=== PATIENT | male | born 1955 | race Caucasian/White ===

== ENCOUNTER 2019-05-10 14:32 | Inpatient (IN) | payer MEDICARE, MEDICAID ==
[2019-05-10] MEDS ORDERED: Ondansetron 4 MG Tab.DIS PO PRN (15:50)
[2019-05-10] MEDS ORDERED: Lactulose Soln 10 GM/15 ML 15 ML UD Cup PO PRN (16:01)
--- NOTE | 2019-05-10 16:16 | PCM.HP.2 ---
H&P History of Present Illness - General Date of Service: 05/10/19 Admit Problem/Dx: Admission Diagnosis/Problem Admission Diagnosis/Problem Rehabilitation therapy Source of Information: Patient, Old Records, Provider History Limitations: Reports: No Limitations - History of Present Illness Initial Comments - Free Text/Narative: Transfer from [facility] for strengthening, he was admitted on 05/05 after being found on the floor by his son with coffee ground emesis. He had acute blood loss anemia and had PEA cardiac arrest, had return of spontaneous circulation and was weaned off the ventilator and moved to medical floor. He received 2 units PRBCs on Admission to ICU and treated for Aspiration pneumonia with ceftriaxone and metronidazole. His hemoglobin has been stable and was 8.5 and today 9.1. His potassium has been replaced and was 2.8 this morning. He received 40 mEq at time of discharge from [place] prior to arrival. He has 3 mores doses of Cefuroxime and 8 doses of Metronidazole left. He had EGD when in ICU and they found a large gastritis, likely cause of bleeding. History of alcohol abuse but no DTs while in [place] and has been pleasant cooperative. No hallucinations or tremors. He is on Lactulose bid titrating to have 2-3 bowel movements/day to keep his ammonia levels down. He has a productive cough, denies any rib pain, chest or abdominal pain. No diarrhea. He has some skin tears on his upper arms that were dressed prior to arrival. - Related Data Home Medications: Home Meds Cefuroxime Axetil [Ceftin] 500 mg PO BID 05/10/19 [History] Cyanocobalamin (Vitamin B-12) [Vitamin B-12] 250 mcg PO DAILY 05/10/19 [History] Folic Acid 1 mg PO DAILY 05/10/19 [History] Lactulose 15 ml PO BID PRN 05/10/19 [History] Omeprazole 20 mg PO BIDAC 05/10/19 [History] Potassium Chloride 40 meq PO BID 05/10/19 [History] Thiamine HCl 100 mg PO DAILY 05/10/19 [History] metroNIDAZOLE [Flagyl] 500 mg PO TID 05/10/19 [History] Past Medical History Cardiovascular History: Reports: Prior Cardiac Arrest Other Respiratory History: aspiration pneumonia Gastrointestinal History: Reports: Gastritis, GI Bleed Psychiatric History: Denies: Hallucinations Other Psychiatric History: Alcoholism Social & Family History - Tobacco Use Smoking Status *Q: Current Every Day Smoker Tobacco Use Within Last Twelve Months: Cigarettes Years of Tobacco use: 50 Packs/Tins Daily: 0.5 - Alcohol Use Alcohol Use History: Yes Alcohol Use Frequency: Daily (375 ml of vodka/day) H&P Review of Systems - Review of Systems: Review Of Systems: See Below General: Reports: No Symptoms Pulmonary: Reports: Shortness of Breath, Cough, Sputum Cardiovascular: Reports: No Symptoms Gastrointestinal: Reports: No Symptoms Genitourinary: Reports: No Symptoms Skin: Reports: Other (skin tears on bilateral upper arms) Psychiatric: Denies: Hallucinations (Auditory), Hallucinations (Visual) Neurological: Denies: Tremors Hematologic/Lymphatic: Reports: Anemia Exam - Exam Exam: See Below - Exam General: Alert, Oriented, Cooperative HEENT: Conjunctiva Clear, Hearing Intact, Mucosa Moist & [place] Neck: Supple, Trachea Midline Lungs: Normal Respiratory Effort, Decreased Breath Sounds, Rales, Wheezing Cardiovascular: Regular Rate, Regular Rhythm GI/Abdominal Exam: Normal Bowel Sounds, Soft, Non-Tender, No Distention Extremities: No Pedal Edema *Q Meaningful Use (ADM) - VTE *Q VTE Anticoagulation Contraindications: Medical/Procedure Contrai - Problem List (1) Aspiration pneumonia SNOMED Code(s): 933877062 ICD Code: J69.0 - PNEUMONITIS DUE TO INHALATION OF FOOD AND VOMIT Status: Acute Current Visit: Yes (2) Anemia due to acute blood loss SNOMED Code(s): 570604021 ICD Code: D62 - ACUTE POSTHEMORRHAGIC ANEMIA Status: Acute Current Visit : Yes (3) Hypokalemia SNOMED Code(s): 66306482 ICD Code: E87.6 - HYPOKALEMIA Status: Acute Current Visit: Yes (4) Gastritis determined by endoscopy SNOMED Code(s): 1458834, 854298522 ICD Code: K29.70 - GASTRITIS, UNSPECIFIED, WITHOUT BLEEDING Status: Acute Current Visit: Yes (5) Alcoholism /alcohol abuse SNOMED Code(s): 4855303 ICD Code: F10.20 - ALCOHOL DEPENDENCE, UNCOMPLICATED Status: Acute Current Visit: Yes (6) History of cardiac arrest SNOMED Code(s): 344720378 ICD Code: Z86.74 - PERSONAL HISTORY OF SUDDEN CARDIAC ARREST Status: Acute Current Visit: Yes (7) Hepatic encephalopathy SNOMED Code(s): 78209391 ICD Code: K72.90 - HEPATIC FAILURE, UNSPECIFIED WITHOUT COMA Status: Acute Current Visit: Yes Problem List Initiated/Reviewed/Updated: Yes Orders Last 24hrs: Active Orders 24 hr Category Date Time Status Patient Status [ADT] Routine ADT 05/10/19 15:42 Ordered Height and Weight [RC] WEEKLY Care 05/10/19 15:42 Ordered Oxygen Therapy [RC] PRN Care 05/10/19 15:42 Ordered Up With Assistance [RC] QID Care 05/10/19 15:50 Ordered VTE/DVT Education [RC] Per Unit Routine Care 05/10/19 15:42 Ordered Vital Signs [RC] PER UNIT ROUTINE Care 05/10/19 15:42 Ordered Consult to Case Management/Vascular Ultrasound Technician [CONS] Cons 05/10/19 15:50 Ordered Routine OT Evaluation and Treatment [CONS] Routine Cons 05/13/19 07:00 Ordered PT Evaluation and Treatment [CONS] Routine Cons 05/13/19 07:00 Ordered Regular Diet [DIET] Diet 05/10/19 Dinner Ordered BASIC METABOLIC PANEL,BMP [CHEM] Routine Lab 05/11/19 06:00 Ordered CBC WITH AUTO DIFF [HEME] Routine Lab 05/11/19 06:00 Ordered Cefuroxime Axetil [Ceftin] Med 05/10/19 21:00 Ordered 500 mg PO BID Cyanocobalamin (Vitamin B-12) [Vitamin B-12] Med 05/11/19 09:00 Ordered 250 mcg PO DAILY Folic Acid Med 05/11/19 09:00 Ordered 1 mg PO DAILY Lactulose [Chronulac] Med 05/10/19 16:01 Ordered 10 gm PO BID PRN Ondansetron [Zofran ODT] Med 05/10/19 15:50 Ordered 4 mg PO Q6H PRN Potassium Chloride [Klor-Con 10] Med 05/11/19 09:00 Ordered 40 meq PO BID Thiamine [Vitamin B-1] Med 05/11/19 09:00 Ordered 100 mg PO DAILY metroNIDAZOLE [Flagyl] Med 05/10/19 21:00 Ordered 500 mg PO TID Anticoagulation Contraindications VTE [AST] Per Unit Oth 05/10/19 15:50 Ordered Routine Antiembolic Hose [OM.PC] Per Unit Routine Oth 05/10/19 15:55 Ordered Resuscitation Status Routine Resus Stat 05/10/19 15:42 Ordered Medication Orders Folic Acid (Folic Acid) 1 mg PO DAILY [facility] Lactulose (Chronulac) 10 gm PO BID PRN PRN Reason: Constipation Metronidazole (Flagyl) 500 mg PO TID [facility] Non-Formulary Medication (Cefuroxime Axetil [Ceftin]) 500 mg PO BID [facility] Non-Formulary Medication (Cyanocobalamin (Vitamin B-12) [Vitamin B-12]) 250 mcg PO DAILY [facility] Ondansetron HCl (Zofran Odt) 4 mg PO Q6H PRN PRN Reason: nausea, able to take PO Potassium Chloride (Klor-Con 10) 40 meq PO BID [facility] Thiamine HCl (Vitamin B-1) 100 mg PO DAILY [facility] Assessment/Plan Comment:: 1. Admit to Swingbed for antibiotics and PT/OT evaluation. 2. Recheck hemoglobin and potassium tomorrow, adjust as needed. 3. Continue cefuroxime and metronidazole, adjust as needed. 4. Incentive spirometry q1h while awake, flutter valve if available. 5. PT/OT evaluation on Monday, nursing to walk QID over the weekend. 6. FULL CODE. - Mortality Measure Prognosis:: Good
[2019-05-10] MEDS: metroNIDAZOLE 500 MG Tab PO SCH ×2 (17:53→21:53)
[2019-05-10] MEDS: Potassium Chloride 20 MEQ Tab.ER PO SCH (21:53)
[2019-05-10] MEDS: Cefuroxime 250 MG Tab PO SCH (21:53)
[2019-05-11] MEDS ORDERED: Furosemide 40 MG/4 ML VIAL IVPUSH ONE (07:24)
[2019-05-11] MEDS: Cyanocobalamin (Vitamin B12) 500 MCG Tab PO SCH (08:55)
[2019-05-11] MEDS: metroNIDAZOLE 500 MG Tab PO SCH ×3 (08:56→20:15)
[2019-05-11] MEDS: Thiamine 100 MG Tab PO SCH (08:56)
[2019-05-11] MEDS: Potassium Chloride 20 MEQ Tab.ER PO SCH ×2 (08:56→20:15)
[2019-05-11] MEDS: Cefuroxime 250 MG Tab PO SCH ×2 (08:57→20:14)
[2019-05-11] MEDS: Folic Acid 1 MG Tab PO SCH (09:00)
[2019-05-11] MEDS ORDERED: Furosemide 40 MG/4 ML VIAL ONE (09:37)
--- NOTE | 2019-05-11 09:39 | PCM.PN ---
- General Info Date of Service: 05/11/19 Subjective Update: Patient still pretty weak today when up to the bathroom with nurse, IV infiltrated in right forearm, area red and indurated. No chest pain, breathing about the same. No abdominal pain, nausea or vomiting. Heart rate irregular per nursing and blood pressure fluctuates with his pulse, got down to 29 yesterday per nursing, without symptoms. - Patient Data Vitals - Most Recent: Last Vital Signs Temp 36.2 C 05/10/19 15:42 Pulse 62 05/10/19 15:42 Resp 19 05/10/19 15:42 BP 113/62 05/10/19 15:42 Pulse Ox 93 L 05/10/19 15:42 Weight - Most Recent: 73.255 kg I&O - Last 24 Hours: Intake & Output 05/10/19 05/11/19 05/11/19 22:59 06:59 14:59 Intake Total 100 Output Total 75 Balance 25 Lab Results Last 24 Hours: Laboratory Results - last 24 hr 05/11/19 05/11/19 Range/Units 06:05 06:05 WBC 6.0 (4.5-12.0) X10-3/uL RBC 3.05 L (4.30-5.75) x10(6)uL Hgb 8.8 L (13.5-17.8) g/dL Hct 26.5 L (30.0-51.3) % MCV 86.8 (80-96) fL MCH 29.0 (27.7-33.6) pg MCHC 33.3 (32.2-35.4) g/dL RDW 23.3 H (11.5-15.5) % Plt Count 172 (125-369) X10(3)uL MPV 9.1 (7.4-10.4) fL Add Manual Diff Yes Neutrophils % (Manual) 52 (46-82) % Lymphocytes % (Manual) 28 (13-37) % Monocytes % (Manual) 20 H (4-12) % Anisocytosis Moderate H Sodium 140 (135-145) mmol/L Potassium 3.2 L (3.5-5.3) mmol/L Chloride 102 (100-110) mmol/L Carbon Dioxide 31 (21-32) mmol/L BUN 8 (7-18) mg/dL Creatinine 0.6 L (0.70-1.30) mg/dL Est Cr Clr Drug Dosing 116.75 mL/min Estimated GFR (MDRD) > 60 (>60) BUN/Creatinine Ratio 13.3 (9-20) Glucose 100 (80-116) mg/dL Calcium 7.2 L (8.6-10.2) mg/dL Med Orders - Current: Current Medications Cefuroxime Axetil (Ceftin) 500 mg PO BID [facility] Stop: 05/11/19 21:01 Last Admin: 05/11/19 08:57 Dose: 500 mg Cyanocobalamin (Vitamin B12) 250 mcg PO DAILY [facility] Last Admin: 05/11/19 08:55 Dose: 250 mcg Folic Acid (Folic Acid) 1 mg PO DAILY [facility] Last Admin: 05/11/19 09:00 Dose: 1 mg Lactulose (Chronulac) 10 gm PO BID PRN PRN Reason: Constipation Metronidazole (Flagyl) 500 mg PO TID [facility] Stop: 05/12/19 21:01 Last Admin: 05/11/19 08:56 Dose: 500 mg Ondansetron HCl (Zofran Odt) 4 mg PO Q6H PRN PRN Reason: nausea, able to take PO Potassium Chloride (Klor-Con M20) 40 meq PO BID [facility] Last Admin: 05/11/19 08:56 Dose: 40 meq Thiamine HCl (Vitamin B-1) 100 mg PO DAILY [facility] Last Admin: 05/11/19 08:56 Dose: 100 mg Discontinued Medications Furosemide (Lasix) 40 mg IVPUSH NOW ONE Stop: 05/11/19 07:25 - Exam General: Alert, Oriented, Cooperative, No Acute Distress Lungs: Normal Respiratory Effort, Crackles, Wheezing Cardiovascular: No Murmurs, Irregular Rhythm GI/Abdominal Exam: Normal Bowel Sounds, Soft, Non-Tender, No Distention Extremities: No Pedal Edema Psy/Mental Status: No: Withdrawal Symptoms (no tremors or hallucinations) - Problem List & Annotations (1) Aspiration pneumonia SNOMED Code(s): 887882020 Code(s): J69.0 - PNEUMONITIS DUE TO INHALATION OF FOOD AND VOMIT Status: Acute Current Visit: Yes (2) Anemia due to acute blood loss SNOMED Code(s): 364577031 Code(s): D62 - ACUTE POSTHEMORRHAGIC ANEMIA Status: Acute Current Visit: Yes Annotation/Comment:: stable (3) Hypokalemia SNOMED Code(s): 10942440 Code(s): E87.6 - HYPOKALEMIA Status: Acute Current Visit: Yes Annotation/Comment:: improved to 3.2 (4) Gastritis determined by endoscopy SNOMED Code(s): 7502717, 370175227 Code(s): K29.70 - GASTRITIS, UNSPECIFIED, WITHOUT BLEEDING Status: Acute Current Visit: Yes (5) Alcoholism /alcohol abuse SNOMED Code(s): 6933079 Code(s): F10.20 - ALCOHOL DEPENDENCE, UNCOMPLICATED Status: Acute Current Visit: Yes (6) History of cardiac arrest SNOMED Code(s): 571031680 Code(s): Z86.74 - PERSONAL HISTORY OF SUDDEN CARDIAC ARREST Status: Acute Current Visit: Yes (7) Hepatic encephalopathy SNOMED Code(s): 83120772 Code(s): K72.90 - HEPATIC FAILURE, UNSPECIFIED WITHOUT COMA Status: Acute Current Visit: Yes - Problem List Review Problem List Initiated/Reviewed/Updated: Yes - My Orders Last 24 Hours: My Active Orders 05/10/19 15:42 Patient Status [ADT] Routine Height and Weight [RC] WEEKLY Oxygen Therapy [RC] PRN VTE/DVT Education [RC] 0800 Vital Signs [RC] PER UNIT ROUTINE Resuscitation Status Routine 05/10/19 15:50 Up With Assistance [RC] QID Consult to Case Management/Cmm Technician [CONS] Routine Ondansetron [Zofran ODT] 4 mg PO Q6H PRN Anticoagulation Contraindications VTE [AST] Per Unit Routine 05/10/19 15:55 Antiembolic Hose [OM.PC] Per Unit Routine 05/10/19 16:00 metroNIDAZOLE [Flagyl] 500 mg PO TID 05/10/19 16:01 Lactulose [Chronulac] 10 gm PO BID PRN 05/10/19 21:00 Cefuroxime [Ceftin] 500 mg PO BID Potassium Chloride [Klor-Con M20] 40 meq PO BID 05/10/19 Dinner Regular Diet [DIET] 05/11/19 09:00 Cyanocobalamin (Vitamin B12) [Vitamin B12] 250 mcg PO DAILY Folic Acid 1 mg PO DAILY Thiamine [Vitamin B-1] 100 mg PO DAILY 05/13/19 07:00 OT Evaluation and Treatment [CONS] Routine PT Evaluation and Treatment [CONS] Routine - Plan Plan:: 1. PT/OT evaluation. 2. Recheck hemoglobin and potassium again tomorrow, keep on oral Potassium at this time, will adjust as needed. Will give 1 dose of Lasix 40 mg IV today, some signs of fluid overload. 3. Continue cefuroxime and metronidazole, adjust as needed. 4. Incentive spirometry q1h while awake, flutter valve if available. 5. PT/OT evaluation are here today so they said they were going to see him, Nurses to walk tomorrow. 6. FULL CODE.
[2019-05-11] MEDS ORDERED: Sodium Chloride 0.9% 10 ML Syringe FLUSH PRN (19:06)
[2019-05-12] MEDS: Potassium Chloride 20 MEQ Tab.ER PO SCH ×2 (08:24→20:23)
[2019-05-12] MEDS: Thiamine 100 MG Tab PO SCH (08:24)
[2019-05-12] MEDS: Cyanocobalamin (Vitamin B12) 500 MCG Tab PO SCH (08:24)
[2019-05-12] MEDS: Folic Acid 1 MG Tab PO SCH (08:24)
[2019-05-12] MEDS: metroNIDAZOLE 500 MG Tab PO SCH ×3 (08:24→20:23)
--- NOTE | 2019-05-12 09:06 | PCM.PN ---
- General Info Date of Service: 05/12/19 Subjective Update: Patient's potassium has corrected today. Heart rates are more stable. Still pretty weak and unbalanced. Cough is productive of white sputum but breathing has improved, not as wet. Poor oral intake with water, only drank about 300-400 ml in 12 hour shift. No tremors, diarrhea, vomiting. - Patient Data Vitals - Most Recent: Last Vital Signs Temp 37.0 C 05/11/19 08:00 Pulse 72 05/11/19 08:00 Resp 16 05/11/19 08:00 BP 105/67 05/11/19 10:31 Pulse Ox 94 L 05/11/19 08:00 Weight - Most Recent: 73.255 kg I&O - Last 24 Hours: Intake & Output 05/11/19 05/12/19 05/12/19 22:59 06:59 14:59 Intake Total 500 Output Total 1825 Balance -1325 Lab Results Last 24 Hours: Laboratory Results - last 24 hr 05/12/19 05/12/19 Range/Units 06:06 06:06 Hgb 9.0 L (13.5-17.8) g/dL Hct 27.0 L (30.0-51.3) % Sodium 137 (135-145) mmol/L Potassium 3.8 (3.5-5.3) mmol/L Chloride 102 (100-110) mmol/L Carbon Dioxide 30 (21-32) mmol/L BUN 8 (7-18) mg/dL Creatinine 0.6 L (0.70-1.30) mg/dL Est Cr Clr Drug Dosing 116.75 mL/min Estimated GFR (MDRD) > 60 (>60) BUN/Creatinine Ratio 13.3 (9-20) Glucose 95 (80-116) mg/dL Calcium 7.3 L (8.6-10.2) mg/dL Med Orders - Current: Current Medications Cyanocobalamin (Vitamin B12) 250 mcg PO DAILY [facility] Last Admin: 05/12/19 08:24 Dose: 250 mcg Folic Acid (Folic Acid) 1 mg PO DAILY [facility] Last Admin: 05/12/19 08:24 Dose: 1 mg Lactulose (Chronulac) 10 gm PO BID PRN PRN Reason: Constipation Metronidazole (Flagyl) 500 mg PO TID [facility] Stop: 05/12/19 21:01 Last Admin: 05/12/19 08:24 Dose: 500 mg Ondansetron HCl (Zofran Odt) 4 mg PO Q6H PRN PRN Reason: nausea, able to take PO Potassium Chloride (Klor-Con M20) 20 meq PO BID [facility] Last Admin: 05/12/19 08:24 Dose: 20 meq Sodium Chloride (Saline Flush) 10 ml FLUSH ASDIRECTED PRN PRN Reason: Keep Vein Open Thiamine HCl (Vitamin B-1) 100 mg PO DAILY [facility] Last Admin: 05/12/19 08:24 Dose: 100 mg Discontinued Medications Cefuroxime Axetil (Ceftin) 500 mg PO BID [facility] Stop: 05/11/19 21:01 Last Admin: 05/11/19 20:14 Dose: 500 mg Furosemide (Lasix) 40 mg IVPUSH NOW ONE Stop: 05/11/19 07:25 Last Admin: 05/11/19 09:51 Dose: 40 mg Furosemide (Lasix) Confirm Administered Dose 40 mg .ROUTE .STK-MED ONE Stop: 05/11/19 09:38 Last Admin: 05/11/19 10:05 Dose: Not Given Potassium Chloride (Klor-Con M20) 40 meq PO BID [facility] Last Admin: 05/11/19 20:15 Dose: 40 meq - Exam General: Alert, Oriented, Cooperative, No Acute Distress Lungs: Clear to Auscultation (upper lobes), Normal Respiratory Effort, Decreased Breath Sounds (bases), Crackles (fine bibasilar) Cardiovascular: Regular Rate, Regular Rhythm GI/Abdominal Exam: Normal Bowel Sounds, Soft, Non-Tender, No Distention Extremities: No Pedal Edema - Problem List & Annotations (1) Aspiration pneumonia SNOMED Code(s): 556636155 Code(s): J69.0 - PNEUMONITIS DUE TO INHALATION OF FOOD AND VOMIT Status: Acute Current Visit: Yes (2) Anemia due to acute blood loss SNOMED Code(s): 414161314 Code(s): D62 - ACUTE POSTHEMORRHAGIC ANEMIA Status: Acute Current Visit: Yes Annotation/Comment:: stable at 9.0 (3) Hypokalemia SNOMED Code(s): 08235838 Code(s): E87.6 - HYPOKALEMIA Status: Acute Current Visit: Yes Annotation/Comment:: improved to 3.8 (4) Gastritis determined by endoscopy SNOMED Code(s): 5100700, 180581171 Code(s): K29.70 - GASTRITIS, UNSPECIFIED, WITHOUT BLEEDING Status: Acute Current Visit: Yes (5) Alcoholism /alcohol abuse SNOMED Code(s): 1661781 Code(s): F10.20 - ALCOHOL DEPENDENCE, UNCOMPLICATED Status: Acute Current Visit: Yes (6) History of cardiac arrest SNOMED Code(s): 005197656 Code(s): Z86.74 - PERSONAL HISTORY OF SUDDEN CARDIAC ARREST Status: Acute Current Visit: Yes (7) Hepatic encephalopathy SNOMED Code(s): 86311874 Code(s): K72.90 - HEPATIC FAILURE, UNSPECIFIED WITHOUT COMA Status: Acute Current Visit: Yes - Problem List Review Problem List Initiated/Reviewed/Updated: Yes - My Orders Last 24 Hours: My Active Orders 05/11/19 09:00 Cyanocobalamin (Vitamin B12) [Vitamin B12] 250 mcg PO DAILY Folic Acid 1 mg PO DAILY Thiamine [Vitamin B-1] 100 mg PO DAILY 05/11/19 19:06 Sodium Chloride 0.9% [Saline Flush] 10 ml FLUSH ASDIRECTED PRN 05/12/19 09:00 Potassium Chloride [Klor-Con M20] 20 meq PO BID 05/13/19 07:00 OT Evaluation and Treatment [CONS] Routine PT Evaluation and Treatment [CONS] Routine - Plan Plan:: 1. PT/OT evaluation yesterday. 2. Hemoglobin stable at 9.0. Potassium corrected to 3.8, will decrease to 20 mg bid and recheck. Push fluids. 3. Discontinued cefuroxime and last doses of metronidazole today. 4. Incentive spirometry q1h while awake, flutter valve if available. 5. FULL CODE.
[2019-05-13] MEDS: Folic Acid 1 MG Tab PO SCH (09:10)
[2019-05-13] MEDS: Potassium Chloride 20 MEQ Tab.ER PO SCH ×2 (09:10→20:41)
[2019-05-13] MEDS: Thiamine 100 MG Tab PO SCH (09:11)
[2019-05-13] MEDS: Cyanocobalamin (Vitamin B12) 500 MCG Tab PO SCH (09:11)
[2019-05-13] MEDS ORDERED: Pantoprazole 40 MG Tab.CR PO SCH (09:30)
[2019-05-13] MEDS: Pantoprazole 40 MG Tab.CR PO SCH (10:21)
--- NOTE | 2019-05-13 15:25 | PCM.SN ---
- Free Text/Narrative Note: S:Assessed rash on perineal area: patient states sometimes anders but no itching. O: SKIN: Erythematous, non-tender macular rash on perineal extends to upper medial thighs, no satellite lesions. No odor or excoriations. A: Skin irritation most likely due to heat P: Barrier cream to area per standing orders. Reassess if changes.
[2019-05-14] MEDS: Pantoprazole 40 MG Tab.CR PO SCH (05:17)
[2019-05-14] MEDS: Folic Acid 1 MG Tab PO SCH (08:18)
[2019-05-14] MEDS: Potassium Chloride 20 MEQ Tab.ER PO SCH (08:20)
[2019-05-14] MEDS: Thiamine 100 MG Tab PO SCH (08:21)
[2019-05-14] MEDS: Cyanocobalamin (Vitamin B12) 500 MCG Tab PO SCH (08:22)
[2019-05-14] MEDS: Potassium Chloride 10 MEQ Tab.ER PO SCH (20:17)
[2019-05-15] MEDS: Pantoprazole 40 MG Tab.CR PO SCH (06:15)
[2019-05-15] MEDS: Folic Acid 1 MG Tab PO SCH (08:57)
[2019-05-15] MEDS: Potassium Chloride 10 MEQ Tab.ER PO SCH ×2 (08:58→20:36)
[2019-05-15] MEDS: Thiamine 100 MG Tab PO SCH (08:59)
[2019-05-15] MEDS: Cyanocobalamin (Vitamin B12) 500 MCG Tab PO SCH (08:59)
[2019-05-16] MEDS: Pantoprazole 40 MG Tab.CR PO SCH (05:07)
[2019-05-16] MEDS: Cyanocobalamin (Vitamin B12) 500 MCG Tab PO SCH (10:38)
[2019-05-16] MEDS: Potassium Chloride 10 MEQ Tab.ER PO SCH ×2 (10:38→20:06)
[2019-05-16] MEDS: Folic Acid 1 MG Tab PO SCH (10:38)
[2019-05-16] MEDS: Thiamine 100 MG Tab PO SCH (10:39)
[2019-05-17] MEDS: Pantoprazole 40 MG Tab.CR PO SCH (05:06)
[2019-05-17] MEDS: Potassium Chloride 10 MEQ Tab.ER PO SCH ×2 (09:16→20:18)
[2019-05-17] MEDS: Folic Acid 1 MG Tab PO SCH (09:16)
[2019-05-17] MEDS: Cyanocobalamin (Vitamin B12) 500 MCG Tab PO SCH (09:16)
[2019-05-17] MEDS: Thiamine 100 MG Tab PO SCH (09:16)
[2019-05-18] MEDS: Pantoprazole 40 MG Tab.CR PO SCH (05:03)
[2019-05-18] MEDS: Folic Acid 1 MG Tab PO SCH (08:01)
[2019-05-18] MEDS: Thiamine 100 MG Tab PO SCH (08:01)
[2019-05-18] MEDS: Cyanocobalamin (Vitamin B12) 500 MCG Tab PO SCH (08:01)
[2019-05-18] MEDS: Potassium Chloride 10 MEQ Tab.ER PO SCH (08:01)
--- NOTE | 2019-05-20 07:44 | DISCH ---
DISCHARGE DATE: 05/18/2019 REASON FOR ADMISSION: 1. Generalized weakness. 2. History of aspiration pneumonia. 3. Alcohol abuse. 4. GI blood loss. 5. Hepatic encephalopathy. 6. History of cardiac arrest. 7. Alcohol withdrawal syndrome. 8. Hypokalemia. 9. Anemia due to acute blood loss. BRIEF HISTORY AND HOSPITAL COURSE: This is a 63-year-old male admitted at [facility] after PEA and cardiac arrest due to acute blood loss, was found to have aspiration pneumonia, gastritis on endoscopy, and treated successfully and returned to [place] for swing bed. He has been undergoing physical and occupational therapy and is deemed ready to go home today with home health, because he is still weak and needs continued services. DISCHARGE MEDICATIONS: He will go home on potassium chloride millequivalents, folic acid, lactulose, vitamin B12, thiamine, and omeprazole. FOLLOWUP: Will continue seeing the home health nurse for snf care, physical and occupational therapy, and also see his PCP next week. I spent more than 35 minutes in the discharge of the patient. /[id number] MADELAINE/GALDINO
== END 2019-05-18 14:15 | disposition home health service (06) | DRG 177 ==
LOC: FB.MS 15:37
PROVIDERS: ADMIT Family Medicine; ATTEND Family Medicine
DX: J69.0 Pneumonitis due to inhalation of food and vomit (principal); K29.71 Gastritis, unspecified, with bleeding; F10.239 Alcohol dependence with withdrawal, unspecified; D62 Acute posthemorrhagic anemia; K72.90 Hepatic failure, unspecified without coma; E87.6 Hypokalemia; F17.210 Nicotine dependence, cigarettes, uncomplicated; L53.9 Erythematous condition, unspecified; E87.70 Fluid overload, unspecified; Z87.01 Personal history of pneumonia (recurrent); Z86.74 Personal history of sudden cardiac arrest; Z79.899 Other long term (current) drug therapy
CPT/HCPCS: 36415; 80048; 82962; 85014; 85018; 85025; 94150; 97110-GO; 97116-GP; 97161-GP; 97165-GO; 97530-GO; 97535-GO; A9270-GY; J1940